=== PATIENT | female | born 1990 | race Caucasian/White ===

== ENCOUNTER 2016-07-31 22:36 | Emergency (ER) | payer OTHER ==
[~2016-07-31] VITALS: Ht 157.5 cm; Wt 52.2 kg
[~2016-07-31 22:36] MED LIST: DELTASONE20 MG PO; MEDROL DOSEPAK1 PAC PO; PEPCID20 M1 PO; VICODIN5-300 PO; VYVANSE40 M1 PO
--- NOTE | 2016-07-31 23:06 | ED HEADACHE COMPLAINT ---
History of Present Illness General Chief Complaint: Headache Stated Complaint: PT HAS A MIRGRAINE Source: patient, family, old records Exam Limitations: no limitations Vital Signs & Intake/Output Vital Signs & Intake/Output Vital Signs Date Time Temp Pulse Resp B/P Pulse O2 O2 Flow FiO2 Ox Delivery Rate 08/01 0043 95.6 95 16 92/53 100 Room Air Room Air 07/31 2239 97.6 108 16 122/84 99 Room Air ED Intake and Output 08/01 0000 07/31 1200 Intake Total Output Total Balance Patient 115 lb Weight Allergies Coded Allergies: omeprazole (From Prilosec) (Severe, ANGIOEDMEMA 02/14/16) Reconcile Medications Famotidine (Pepcid) 20 MG TABLET 1 TAB PO BID RASH HYDROCODONE/ACETAMINOPHEN (Hydrocodon-Acetaminophen 5-325) 1 EACH TABLET 1 TAB PO Q6H PRN pain Lisdexamfetamine Dimesylate (Vyvanse) 40 MG CAPSULE 1 CAP PO QAM ADHD ( Reported) Methylprednisolone. (Medrol) 4 MG TAB.DS.PK 1 PAC PO TAPER INFLAMMATION Methylprednisolone. (Medrol) 4 MG TAB.DS.PK 1 DP PO AD migraine Metoclopramide HCl (Reglan) 10 MG TABLET 1 TAB PO 4 TIMES/DAY PRN nausea/ headache Prednisone (Deltasone) 20 MG TABLET 3 TAB PO DAILY ALLERGY Triage Note: PT TO TRIAGE WITH C/O MIGRAINE 8/10, NAUSEA, PHOTOPHOBIA x3DAYS. PT HAS BEEN TAKING TYLENOL AND EXCEDRIN WITH NO PAIN RELIEF. PT [facility]EST[facility] AND RECEIVED TORADOL IV AND ZOFRAN IV WITH NO SIGNIFICANT RELIEF AND WAS RECOMMENDED TO GO TO ER [facility]. Triage Nurses Notes Reviewed? yes : No Patient currently breastfeeds: No HPI: Patient is a 25 year old female presents complaining of migraine x 3 days. Headache is 8/10, associated photophobia, phonophobia. Headache is similar to previous migraines. Seen at urgent care clinic administered toradol and zofran with mild temporary improvement then pain returned. Associated nausea, 1 episode of vomiting on Tuesday. Hematuria Tuesday(the day after her period ended), none since then, denies dysuria, denies urgency/frequency. (JEANINE GUAJARDO,MARK) Past History Travel History Traveled to [place] past 21 day No Medical History Any Pertinent Medical History? see below for history Neurological: NONE EENT: NONE Cardiovascular: NONE Respiratory: asthma Gastrointestinal: STOMACH ULCERS resolved on last endoscopy Hepatic: NONE Renal: NONE Musculoskeletal: NONE Psychiatric: NONE Endocrine: NONE Blood Disorders: NONE Cancer(s): NONE Surgical History Surgical History: LEFT/RIGHT FOOT SX Psychosocial History What is your primary language Polish Tobacco Use: Never used Family History Hx Contributory? No (MARK CASTRO) Review of Systems Review of Systems Constitutional: Denies: chills, fever. Eyes: Reports: photophobia. Ears, Nose, Throat, Mouth: Reports: no symptoms. Respiratory: Denies: cough, short of breath. Cardiovascular: Denies: chest pain. Gastrointestinal/Abdominal: Reports: nausea. Denies: abdominal pain. Musculoskeletal: Reports: neck pain. Denies: back pain. Skin: Reports: no symptoms. Neurological/Psychological: Reports: see HPI. Hematologic/Endocrine: Reports: no symptoms. Endocrine: Reports: no symptoms. Immunologic/Allergic: Reports: no symptoms. (MARK CASTRO) Physical Exam Physical Exam General Appearance: well developed/nourished, alert, awake Head: atraumatic, normal appearance Eyes: Bilateral: normal appearance, PERRL, EOMI. Ears, Nose, Throat: hearing grossly normal Neck: normal inspection, supple, full range of motion, no midline tenderness, mild bilateral paraspinal tenderness Respiratory: normal breath sounds, chest non-tender, no respiratory distress, lungs clear Cardiovascular: tachycardia (regular rhythm) Back: normal inspection, normal range of motion Extremities: normal inspection, normal capillary refill, normal range of motion, no edema Psychiatric: awake, alert, oriented x 3 Cranial Nerves: normal hearing, normal speech, PERRL Coordination/Gait: normal gait Motor/Sensory: no motor/sensory deficits Skin: intact, normal color, warm/dry Lymphatic: no anterior cervical ivana Core Measures Severe Sepsis Present: No Septic Shock Present: No (MARK CASTRO) Progress Differential Diagnosis: cluster SANCHEZ, encephalitis, IC mass/tumor, intracranial Hem., meningitis, migraine SANCHEZ, musculoskeletal pain, tension SANCHEZ, viral cephalgia Plan of Care: Current Medications Sig/Sidney Start time Last Medication Dose Stop Time Status Admin Diphenhydramine HCl 25 MG ONCE ONE 07/31 2329 UNVr (Benadryl) 07/31 2330 Ketorolac 30 MG ONCE ONE 07/31 2329 UNVr Tromethamine 07/31 2330 (Toradol) Metoclopramide HCl 10 MG ONCE ONE 07/31 2329 UNVr (Reglan) 07/31 2330 Sodium Chloride 1,000 ML BOLUS ONE 07/31 2329 UNVr (Normal Saline 0.9%) 08/01 0029 Patient reports significant improvement in her headache status post Toradol, Benadryl, Reglan, fluids. No acute neurologic abnormalities. Headache consistent with previous migraines. Labs and imaging deferred. (MARK CASTRO) Departure Departure Time of Disposition: 32 Disposition: HOME OR SELF CARE Condition: Stable Clinical Impression Primary Impression: Migraine headache Qualifiers: Migraine type: unspecified Status migrainosus presence: with status migrainosus Intractability: intractable Qualified Code: G43.911 - Migraine, unspecified, intractable, with status migrainosus Referrals: NURIA TOSCANO,AUSTIN Rangel (PCP/Family) Additional Instructions: Follow-up with your primary care doctor for further evaluation. Return to emergency department if unable to stay hydrated, fevers, or worsening of symptoms. Departure Forms: Customer Survey General Discharge Information Prescriptions: Current Visit Scripts Methylprednisolone. (Medrol) 1 DP PO AD #1 DP Metoclopramide HCl (Reglan) 1 TAB PO 4 TIMES/DAY PRN nausea/headache #12 TAB (MARK CASTRO) PA/MILL BEAM FITTER Co-Sign Statement Statement: ED Attending supervision documentation- [] I saw and evaluated the patient. I have also reviewed all the pertinent lab results and diagnostic results. I agree with the findings and the plan of care as documented in the PA's/MILL BEAM FITTER's documentation. x I have reviewed the ED Record and agree with the PA's/MILL BEAM FITTER's documentation. [] Additions or exceptions (if any) to the PAs/MILL BEAM FITTER's note and plan are summarized below: [] (ABNER TOSCANO,BABAR)
[2016-08-01] MEDS ORDERED: MEDROL4 M2 PO (00:35)
[2016-08-01] MEDS ORDERED: REGLAN10 M1 PO (00:35)
[2016-08-01 00:43] VITALS: BP 92/53
== END 2016-08-01 00:45 ==
LOC: ERH 22:36
DX: G43.909 Migraine, unspecified, not intractable, without status migrainosus (principal)
CPT/HCPCS: 96361; 96374; 96375; J1200; J1885; J2765